=== PATIENT | male | born 1985 | race Caucasian/White ===

== ENCOUNTER 2023-02-10 02:40 | Outpatient (CLI) | payer MEDICAID | END 2023-02-10 23:59 | disposition critical access hospital (66) | LOC: EMS 02:40 | DX: R40.0 Somnolence (principal); F11.90 Opioid use, unspecified, uncomplicated; S01.112A Laceration without foreign body of left eyelid and periocular area, initial encounter; S30.1XXA Contusion of abdominal wall, initial encounter; M25.512 Pain in left shoulder; V03.90XA Pedestrian on foot injured in collision with car, pick-up truck or van, unspecified whether traffic or nontraffic accident, initial encounter | CPT/HCPCS: A0425; A0429; A0999 ==

== ENCOUNTER 2023-02-10 03:07 | Emergency (ER) | payer MEDICAID, OTHER ==
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
[2023-02-10] MEDS ORDERED: KETOROLAC 30 MG/ML VIAL IM STA (04:31)
[2023-02-10 04:48] VITALS: BP 120/78
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
== END 2023-02-10 04:47 | disposition home or self-care (01) ==
LOC: ED 03:07
DX: S22.32XA Fracture of one rib, left side, initial encounter for closed fracture (principal); X58.XXXA Exposure to other specified factors, initial encounter; F19.10 Other psychoactive substance abuse, uncomplicated; Z59.00 Homelessness unspecified
CPT/HCPCS: 80053; 80307; 80320; 80329; 83690; 84443; 85025; 96372; 99284